=== PATIENT | female | born 1990 ===

== ENCOUNTER 2018-10-25 13:13 | Emergency (ER) | payer OTHER ==
[2018-10-25 13:34] VITALS: O2SAT 100
--- NOTE | 2018-10-25 14:04 | ED PDOC ---
HPI: Female Pain Time Seen by Provider: 10/25/18 13:56 Chief Complaint (Nursing): Female Genitourinary Chief Complaint (Provider): pelvic pain History Per: Patient History/Exam Limitations: no limitations Onset/Duration Of Symptoms: Days (3), Gradual, Persistent, Other (radiating to low back) Current Symptoms Are (Timing): Still Present Quality Of Discomfort: Aching Associated Symptoms: Nausea, Other (vaginal itching, headache, nonvertiginous dizziness). denies: Fever, Chills, Vomiting, Diarrhea, Loss Of Appetite, Urinary Symptoms (frequency, hematuria or dysuria) Additional Complaint(s): No taking anything for pain LMP september 23 Past Medical History Reviewed: Historical Data, Nursing Documentation, Vital Signs Vital Signs: Last Vital Signs Temp 98.2 F 10/25/18 13:29 Pulse 75 10/25/18 13:29 Resp 16 10/25/18 13:29 BP 116/75 10/25/18 13:29 Pulse Ox 100 10/25/18 13:29 Primary Care Provider: FAMILY PROVIDER,NO - Medical History PMH: No Chronic Diseases - Surgical History Surgical History: No Surg Hx - Family History Family History: States: Diabetes - Social History Current smoker - smoking cessation education provided: No - Home Medications Home Medications: Ambulatory Orders Medication Instructions Recorded Miconazole [Monistat 3] 200 mg VG DAILY #1 packet 10/25/18 Multivit/Folic Acid/I 1 tab PO DAILY #100 tab 10/25/18 [ Plus] - Allergies Allergies/Adverse Reactions: Allergies Allergy/AdvReac Type Severity Reaction Status Date / Time No Known Allergies Allergy Verified 10/25/18 13:29 Review of Systems ROS Statement: Except As Marked, All Systems Reviewed And Found Negative (and as per HPI) Gastrointestinal: Positive for: Abdominal Pain. Negative for: Nausea, Vomiting, Diarrhea Genitourinary Female: Positive for: Pelvic Pain, Other (vaginal itching). Negative for: Dysuria, Frequency, Hematuria, Vaginal Discharge, Vaginal Bleeding, Rash Musculoskeletal: Positive for: Back Pain Neurological: Positive for: Headache, Dizziness. Negative for: Weakness, Numbness Physical Exam - Reviewed Nursing Documentation Reviewed: Yes Vital Signs Reviewed: Yes - Physical Exam Appears: Positive for: Non-toxic, No Acute Distress Head Exam: Positive for: ATRAUMATIC, NORMOCEPHALIC Skin: Positive for: Warm, Dry Eye Exam: Positive for: EOMI, PERRL Neck: Positive for: Supple, Trachea Midline Cardiovascular/Chest: Positive for: Regular Rate, Rhythm. Negative for: Murmur Respiratory: Positive for: Normal Breath Sounds. Negative for: Respiratory Distress Gastrointestinal/Abdominal: Positive for: Bowel Sounds, Soft, Tenderness (suprapubic and bilateral lower quadrants). Negative for: Mass, Distended, Guarding, Rebound Pelvic Exam: Positive for: Bimanual Exam Normal, No Cerv. Motion Tender, Discharge (large amount of thick yellow white discharge), Other (external vaginal area erythematous. Assisted by ED[facility] Almazan.). Negative for: Blood Back: Positive for: Normal Inspection. Negative for: L CVA Tenderness, R CVA Tenderness, Decreased ROM, Muscle Spasm Extremity: Positive for: Normal ROM. Negative for: Deformity Lymphatic: Negative for: Adenopathy Neurological/Psych: Positive for: Awake, Alert. Negative for: Motor/Sensory Deficits - Laboratory Results Result Diagrams: 10/25/18 14:29 - ECG O2 Sat by Pulse Oximetry: 100 - Progress ED Course And Treament: Azithro/rocephin ordered for copious discharge. Vaginitis also possible. Labs c/w with very early . (Consistent with dates.) Accession No. : [id number] Patient Name / ID : CHETAN BETTS / [id number] Exam Date : 10/25/2018 17:14:47 ( Approved ) Study Comment : Sex / Age : F / 28Y Creator : Mara Li MD Dictator : Mara Li MD Glass Tinter : Manager Hospital : Mara Li MD Approver2 : Report Date : 10/25/2018 18:49:16 My Comment : This report is currently processing and HAS NOT BEEN OFFICIALLY SIGNED BY THE PHYSICIAN - ESTIMATED TIME OF APPROVAL IS 10/25/2018 18:54. Date of service: 10/25/2018 Indication: early preg pelvic pain Comparison: None available Technique: Real-time transabdominal pelvic ultrasound was performed. In addition a tr ansvaginal pelvic ultrasound was necessary to better depict pelvic anatomy. Findings: Uterus measures approximately 6.6 x 5.7 x 4.4 cm. Anteverted. Cervix length measures approximately 3.0 cm. Endometrial stripe measures approximately 1.6 cm in diameter. Small fluid noted within the endometrium. Possible tiny early gestational sac measuring approximately 3 x 2 x 3 mm, out of range for gestational age calculation. No evidence of yolk sac or pole. The right ovary measures 2.3 x 2.6 x 1.3 cm. The left ovary measures 3.4 x 1.9 x 1.9 cm with probable involuting follicle measuring 1.8 cm. Blood flow was demonstrated to both ovaries. Impression: Small fluid noted within the endometrium, possibly early gestational sac, out of range for gestational age calculation. No evidence of yolk sac or pole at this time. Recommend correlation with quantitative beta HCG and follow-up ultrasound as indicated. Lack of findings c/w dates and very early . Expectant management of with referral to care and initiation of vitamins. Strict instructions to return to ER for severe pain. Other return parameters also reviewed. Disposition - Clinical Impression Clinical Impression: Vaginitis, Pelvic pain during Counseled Patient/Family Regarding: Studies Performed, Diagnosis, Need For Followup, Rx Given - Disposition [facility]errals: [facility] ([facility] ) Disposition: Routine/Home Disposition Time: 18:50 Condition: STABLE Additional Instructions: [facility], SI ESTA [place], O OTRAS MALAS SINTOMAS Prescriptions: Miconazole [Monistat 3] 200 mg VG DAILY #1 packet Multivit/Folic Acid/I [ Plus] 1 tab PO DAILY #100 tab Instructions: Vaginitis, - The Second Month, Stomach Pain in Early Print Language: BHUTANESE
[2018-10-25] MEDS ORDERED: Lactated Ringer's 1,000 ML IV STA (14:15)
[2018-10-25 14:46] LABS: BASO # 0.1 K/uL (0.0-0.2); BASO % 0.8 % (0.0-2.0); EOS # 0.1 K/uL (0.0-0.7); EOS % 1.1 % (0.0-4.0); HEMOGLOBIN 14.6 g/dL (12.0-16.0); LYMPH # 2.6 K/uL (1.0-4.3); LYMPH % 27.5 % (20.0-40.0); MEAN CELL VOLUME 84.7 fl (81.0-99.0); MEAN CORPUSCULAR HEMOGLOBIN 28.9 pg (27.0-31.0); MEAN CORPUSCULAR HGB CONC 34.1 g/dL (33.0-37.0); MEAN PLATELET VOLUME 9.8 fl (7.2-11.7); MONO # 0.5 K/uL (0.0-0.8); MONO % 5.4 % (0.0-10.0); NEUT # 6.1 K/uL (1.8-7.0); NEUT % 65.2 % (50.0-75.0); NRBC % 0.1 % (0.0-0.0); RBC 5.05 Mil/uL (3.80-5.20); RED CELL DISTRIBUTION WIDTH 13.9 % (11.5-14.5); WHITE BLOOD COUNT 9.4 K/uL (4.8-10.8)
[2018-10-25 16:20] VITALS: RESP 18
[2018-10-25] MEDS ORDERED: cefTRIAXone (Rocephin) 250 mg Inj IM STA (16:28)
[2018-10-25] MEDS ORDERED: cefTRIAXone (Rocephin) 250 mg Inj ONE (17:29)
[2018-10-25] MEDS ORDERED: Sterile Water 10 ML IV ONE (17:29)
--- NOTE | 2018-10-25 18:52 | US ---
Date of service: 10/25/2018 Indication: early preg pelvic pain Comparison: None available Technique: Real-time transabdominal pelvic ultrasound was performed. In addition a transvaginal pelvic ultrasound was necessary to better depict pelvic anatomy. Findings: Uterus measures approximately 6.6 x 5.7 x 4.4 cm. Anteverted. Cervix length measures approximately 3.0 cm. Endometrial stripe measures approximately 1.6 cm in diameter. Small fluid noted within the endometrium. Possible tiny early gestational sac measuring approximately 3 x 2 x 3 mm, out of range for gestational age calculation. No evidence of yolk sac or pole. The right ovary measures 2.3 x 2.6 x 1.3 cm. The left ovary measures 3.4 x 1.9 x 1.9 cm with probable involuting follicle measuring 1.8 cm. Blood flow was demonstrated to both ovaries. Impression: Small fluid noted within the endometrium, possibly early gestational sac, out of range for gestational age calculation. No evidence of yolk sac or pole at this time. Recommend correlation with quantitative beta HCG and follow-up ultrasound as indicated.
[2018-10-25 19:21] VITALS: BP 108/59; PULSE 76; TEMP 98.3
== END 2018-10-25 19:12 | disposition home or self-care (01) ==
LOC: H.ER 13:13
DX: O26.899 Other specified pregnancy related conditions, unspecified trimester (principal); O23.599 Infection of other part of genital tract in pregnancy, unspecified trimester
CPT/HCPCS: 76817; 84702; 85025; 86850; 86900; 87070; 87491; 87591; 96360; 96372; 99285; J0696; J7120